=== PATIENT | female | born 1970 | race Caucasian/White ===

== ENCOUNTER 2017-03-20 10:46 | Emergency (ER) | payer OTHER ==
--- NOTE | ~2017-03-20 | ER ---
PATIENT'S NAME: TOPHER [facility] AGE: 46 Y [address] ROOM: [place] [address] LOCATION: [facility] ADMIT DATE: 03/20/2017 ER/Outpatient Report DISCHARGE DATE: 03/20/2017 FAMILY PHYSICIAN: PHYSICIAN, NO ATTENDING PHYSICIAN: Stan Quintanilla Time of Arrival: 1047 hours. Time of Evaluation: 1047 hours. CHIEF COMPLAINT: Chest pain. HISTORY OF PRESENT ILLNESS: The patient is a 46-year-old female who presents to the emergency department today with the chief complaint of chest pain. She reports this started approximately 3 to 4 days prior to arrival. She reports she is having a cough since with some shortness of breath. The pain is sharp, it is in the center of her chest as well as in the back. Denies any nausea or vomiting. No diarrhea or constipation. Pain is currently 7/10 in severity. Nothing makes it worse, nothing makes it better. The patient was initially seen and evaluated at [facility], was sent over here for further evaluation, treatment, and management. She has had fevers of 101 at home. PAST MEDICAL HISTORY: None. PAST SURGICAL HISTORY: None. SOCIAL HISTORY: The patient denies any tobacco use. Reports occasional alcohol use. Denies any illicit drug use. ALLERGIES: NO KNOWN DRUG ALLERGIES. MEDICATIONS: None. PRIMARY CARE DOCTOR: [facility]. REVIEW OF SYSTEMS: All systems are reviewed by myself and negative with the exception of those discussed in the HPI and past medical history. PATIENT'S NAME: TOPHER [facility] AGE: 46 Y [address] ROOM: [place] [address] LOCATION: [facility] ADMIT DATE: 03/20/2017 ER/Outpatient Report DISCHARGE DATE: 03/20/2017 FAMILY PHYSICIAN: PHYSICIAN, NO ATTENDING PHYSICIAN: Stan Quintanilla PHYSICAL EXAMINATION: VITAL SIGNS: Weight 83.8 kg. Blood pressure 131/79, pulse 97, respiratory rate 20, temperature 100.8, oxygen saturation 97% on room air. GENERAL: The patient is a 46-year-old female, who appears stated age, in no acute distress at this time. HEENT: Head: Normocephalic, atraumatic. Pupils are equal, round, and reactive to light and accommodation. Extraocular motions are intact. Nares are patent bilaterally. TMs are clear. Oropharynx is clear. NECK: Supple. There is no nuchal rigidity. CARDIOVASCULAR: Regular rate and rhythm. No murmurs, rubs, or gallops. LUNGS: Clear to auscultation bilaterally. No wheezes, rales, or rhonchi. ABDOMEN: Soft, nontender, and nondistended. No rebound, rigidity, or guarding. MUSCULOSKELETAL: The patient moves all 4 extremities. SKIN: Warm and dry. LABORATORY DATA AND X-RAYS: Labs and x-rays are obtained. EKG is obtained and reviewed by myself. Outlying EKG was reviewed, it shows sinus rhythm with a rate of 88, normal axis, normal interval. No ST elevation, ST depression, T-wave inversions. The EKG here at 1101 hours shows sinus rhythm with a rate of 98 with normal axis, normal interval. No ST elevation, ST depression, T-wave inversions. CBC remarkable for white blood cell count 11.8, otherwise normal. Coags are normal. Lactate is 2.4. CMP is unremarkable. Alkaline phosphatase is normal. T-bilirubin is normal. AST is elevated at 80, ALT is 127. Mag normal. CK is normal. CK-MB is normal. Troponin is normal. ProBNP is normal. D-dimer is mildly elevated at 0.57. CT scan of the chest was obtained. I have discussed results with the radiologist, shows no evidence of pulmonary embolism. There is evidence of 4 mm right upper lobe nodule with recommendation for 6-month follow up. There is also evidence of gallstones with a fatty liver. Procalcitonin is less than 0.05. IMPRESSION: 1. Atypical chest pain. 2. Acute sinusitis. 3. 4 mm right upper lobe nodule with recommendation for six-month follow up. 4. Elevated liver enzymes. 5. Cholelithiasis. 6. Initial visit. EMERGENCY DEPARTMENT COURSE: The patient was brought back to the examination room. Seen and evaluated by myself. IV was established. Laboratory analysis and imaging are obtained as described above. EKG is as described above. The patient is given 1 g of PATIENT'S NAME: MARY KAY OBANDO [facility] AGE: 46 Y [address] ROOM: [place] [address] LOCATION: [facility] ADMIT DATE: 03/20/2017 ER/Outpatient Report DISCHARGE DATE: 03/20/2017 FAMILY PHYSICIAN: PHYSICIAN, NO ATTENDING PHYSICIAN: Stan Quintanilla Tylenol. She is given 1 L of normal saline IV. I have discussed the results with the patient and her at the bedside. I have written a prescription for Augmentin for home. I have asked the patient follows up with primary care doctor in 2-3 days for re-evaluation. I have also discussed the need for six-month follow up on the pulmonary nodule. I have also discussed follow up with primary care for the cholelithiasis and fatty liver. I have discussed return to care instructions including worsening symptoms or any other concerns, to return to the emergency department as soon as possible. The patient is agreeable without further questions at this time. DISPOSITION: The patient is discharged home in good condition. DO DOUG OWUSU/nicole /[id number] d: 03/20/172023 t: 03/31/17 0639, OUTPATIENT REPORT
[2017-03-20 11:12] LABS: HEMATOCRIT 39.8 % (33.0-46.0); HEMOGLOBIN 13.8 g/dL (10.0-15.0); MCH 30.7 pg (27.0-34.0); MCHC 34.7 gm/dL (32.0-36.5); MCV 88.6 fl (83.0-98.0); MPV 9.7 fl (9.4-12.4); PLATELET COUNT 433 K/uL (150-450); RBC 4.49 M/uL (3.50-5.50); RDW-CV 13.9 % (11.9-14.6); WBC 11.8 K/uL (4.0-11.0)
[2017-03-20 11:20] LABS: INR - (THERAPEUTIC) 0.94 (0.92-1.07); PROTIME 9.9 SECONDS (9.8-11.4); PTT 26 SECONDS (25-32)
[2017-03-20 11:33] LABS: ALBUMIN 3.5 gm/dL (3.5-5.0); ALK PHOS 107 IU/L (33-138); ALT 121 IU/L (12-78); ANION GAP 13.9 (10.0-19.0); AST 80 IU/L (10-40); BLOOD UREA NITROGEN 9 mg/dL (6-24); CALCIUM 8.9 mg/dL (8.5-10.5); CHLORIDE 105 mMol/L (96-110); CO2 22 mMol/L (22-32); CPK 139 IU/L (21-215); CREATININE 0.7 mg/dL (0.5-1.1); ESTIMATED GFR (MDRD EQUATION) > 60; MAGNESIUM 1.9 mg/dL (1.8-2.6); POTASSIUM 3.9 mMol/L (3.7-5.1); SODIUM 137 mMol/L (135-145); TOTAL BILIRUBIN 0.5 mg/dL (0.0-1.5); TOTAL PROTEIN 7.7 g/dL (6.0-8.4)
[2017-03-20 11:48] LABS: ABSOLUTE NEUTROPHIL CT (ANC) 9.2 K/uL (1.8-7.8); BANDED NEUTROPHIL # 0.2 K/uL (0.0-0.1); BANDED NEUTROPHILS % 2 %; LYMPHOCYTE # 0.8 K/uL (0.8-4.0); LYMPHOCYTE % 7 %; MONOCYTE # 0.7 K/uL (0.0-1.0); SEGMENTED NEUTROPHIL % 76 %
== END 2017-03-20 13:05 | disposition disaster alternative care site (69) ==
LOC: GMED 10:46
PROVIDERS: Emergency Medicine
DX: R07.89 Other chest pain (principal); J01.90 Acute sinusitis, unspecified; R91.1 Solitary pulmonary nodule; K80.20 Calculus of gallbladder without cholecystitis without obstruction; R74.8 Abnormal levels of other serum enzymes
CPT/HCPCS: J7030; Q9967